=== PATIENT | male | born 1985 | race Caucasian/White ===

== ENCOUNTER 2019-03-30 07:04 | Emergency (ER) | payer SELFPAY ==
[2019-03-30 07:21] VITALS: BP 142/77; PULSE 89; RESP 16; TEMP 36.1; O2SAT 96
--- NOTE | 2019-03-30 07:36 | ED.GENADUL_ITS ---
Discharge Plan Disposition Patient Disposition: HOME Condition: Improving Discharge Details Chief Complaint: Sorethroat Clinical Impression: Exudative pharyngitis Primary Care Provider: None,None ED Provider: Fadi Borden Home Meds and New Rx's Prescriptions: New penicillin V potassium 500 mg tablet 500 mg PO TID 10 Days Qty: 30 RF: 0 No Action No Known Home Meds RF: 0 Discharge Instructions Instructions: Pharyngitis (ED) Additional Instructions: Tylenol and/or ibuprofen if needed for pain. Small, frequent sips of fluids to maintain hydration Take penicillin as prescribed. Return for any concern Medical Decision Making 34-year-old male with exudative pharyngitis. Handling secretions, no change to voice, he is afebrile and otherwise well-appearing. His rapid strep test is positive. He does have some mild swelling of the uvula, given a single dose of dexamethasone and will be started on a course of penicillin. He understands homecare as well as follow-up and return precautions. HPI General Mode of arrival: ambulatory . Date/Time Provider Initiated Documentation: 03/30/19 07:08 . Limitations to Documentation: no limitations . Information obtained by: patient . History of Present Illness 34 year old M presents to the emergency department with the chief complaint of Sore throat x2 days, described as moderate, Quality is described as dull and constant, and is localized to the face and mouth. Patient reports no radiation. Patient started experiencing this day(s) and it has been constant. No relieving factors improve symptom(s), No exacerbating factors reported . Patient notes denies fever/chills, nausea/vomiting and shortness of breath. Related Data Home Medications Medication Instructions Recorded Confirmed Unknown [No Known Home Meds] 06/14/13 03/30/19 penicillin V potassium 500 mg PO TID 10 Days #30 tab 03/30/19 Previous Rx's Medication Instructions Recorded penicillin V potassium 500 mg PO TID 10 Days #30 tab 03/30/19 Allergies Allergy/AdvReac Type Severity Reaction Status Date / Time No Known Allergies Allergy Unverified 03/30/19 07:24 General Stated Complaint: Sorethroat COLT: 4 Review of Systems Review of Systems 6 systems reviewed and otherwise negative [facility] Social History Smoking/Tobacco Use Status: Current every day Alcohol Intake: current Alcohol Intake frequency: 0-2 drinks per day Alcohol type: hard liquor Drug use: Never Do you feel safe in your relationship?: Yes Exam Narrative Exam Narrative: GEN: awake, alert, oriented 3. Pleasant, well groomed, interacti ve. HEAD: Normocephalic, atraumatic ENT: Mucous membranes moist, oropharynx with erythematous tonsillar pillars, the uvula is midline, there is overlying white exudate, External ear exam unremarkable EYES: PERRL, EOMI NECK: Full ROM, no ALVARO, no menigismus CHEST/RESP: Nontender, clear to auscultation bilateral, no wheeze/rhonchi/rales CARDIOVASCULAR: RRR, no murmur, rub paul. 2+ Rad pulse bilateral Neuro: Grossly normal neurologic exam, conversant, interactive. Psych: Speech fluent, thoughts congruent, affect normal Course Vital Signs Temperature 36.1 C L 03/30/19 07:21 Pulse 89 03/30/19 07:21 Respiratory Rate 16 03/30/19 07:21 Blood Pressure 142/77 H 03/30/19 07:21 Pulse Oximetry 96 03/30/19 07:21 Temperature 36.1 C L 03/30/19 07:21 Temperature Source Skin 03/30/19 07:21 Pulse 89 03/30/19 07:21 Respiratory Rate 16 03/30/19 07:21 Respiratory Effort Non-Labored 03/30/19 07:21 Blood Pressure 142/77 H 03/30/19 07:21 Blood Pressure Position Sitting 03/30/19 07:21 Pulse Oximetry 96 03/30/19 07:21 Oxygen Delivery Method Room Air 03/30/19 07:21 Oxygen Flow Rate 0 03/30/19 07:21 Pain Level 7 03/30/19 07:21 Lab/Test Results Lab/Test Results: POC Strep Test-HARJINDER(Rapid) Start: 03/30/19 07:27 Freq: .Rapid Strep Test Status: Active Protocol: Document 03/30/19 07:28 DARIUS (Rec: 03/30/19 07:28 DARIUS [email or web address]) Strep test-HARJINDER(Rapid)-POC POC-Strep test-HARJINDER (Rapid) Positive POC-Strep test-HARJINDER (Rapid) Positive
[2019-03-30] MEDS: Dexamethasone 4 MG TAB 8 MG PO (07:41)
== END 2019-03-30 07:43 | disposition home or self-care (01) ==
LOC: ER 07:49
PROVIDERS: Emergency Provider Emergency Medicine
DX: J02.0 Streptococcal pharyngitis (principal); F17.210 Nicotine dependence, cigarettes, uncomplicated
CPT/HCPCS: 87880; 99283; J8540

== ENCOUNTER 2021-06-24 15:54 | Emergency (ER) | payer SELFPAY ==
[2021-06-24 16:00] VITALS: BP 155/89; PULSE 107; RESP 16; TEMP 36.9; O2SAT 97
--- NOTE | 2021-06-24 16:07 | W.ED.GENAD ---
Discharge Plan Disposition Patient Disposition: HOME Condition: Improving Discharge Details Clinical Impression: Bilateral impacted cerumen Primary Care Provider: None,None ED Provider: Diandra Yeager Home Meds and New Rx's Prescriptions: No Action No Known Home Meds RF: 0 Discharge Instructions Instructions: Impactaci?n de Cerumen (ED) Additional Instructions: Follow up with primary care provider in 3-5 days. Return to ED sooner if any worsening or concerns. Increase oral fluids. Try irrigating left ear out with hydrogen peroxide and warm tap water if needed. Discharge Data Discharge Date/Time-TO BE ENTERED AT DEPARTURE: 06/24/21 17:22 Medical Decision Making Patient re-evaluated after RN irrigated ears, right ear canal completely clear, left with some remaining cerumen. Patient reports increase relief in symptoms. Instructed on follow-up with PCP, verbalized understanding. Right TM is without erythema visualized landmarks. Patient remained hemodynamically stable throughout stay. This text was generated using [employer]af[employer] dictation system, please disregard any oddities of phrase or misspellings. HPI General Mode of arrival: ambulatory. Date/Time Provider Initiated Documentation: 06/24/21 16:06. Limitations to Documentation: no limitations. Information obtained by: patient. HPI Narrative: Patient reports right ear clogged up with pain radiating into his right jaw. Reports went swimming 2 weeks ago and has always had increased wax build up. No other complaints. On initial exam he has impacted cerumen build up bilaterally. Related Data Home Medications Medication Instructions Recorded Confirmed Unknown [No Known Home Meds] 06/14/13 06/24/21 Allergies Allergy/AdvReac Type Severity Reaction Status Date / Time No Known Allergies Allergy Unverified 06/24/21 16:04 General Stated Complaint: EarProblem COLT: 4 Review of Systems All systems reviewed & are unremarkable except as noted in HPI and below ENT Ears, Nose, Mouth, and Throat: Reports otalgia (Bilaterally) [facility] Social History Smoking/Tobacco Use Status: Current every day Smoking risk assessment performed?: Yes Alcohol Intake: current Alcohol Intake frequency: 0-2 drinks per day Alcohol type: hard liquor Drug use: Never Do you feel safe in your relationship?: Yes Exam HENMT Ears: unable to visualize TM (cerumen impaction) bilaterally Course Vital Signs Vital signs: Vital Signs Temperature 36.9 C 06/24/21 16:00 Pulse 107 H 06/24/21 16:00 Respiratory Rate 16 06/24/21 16:00 Blood Pressure 155/89 H 06/24/21 16:00 Pulse Oximetry 97 06/24/21 16:00 Temperature 36.9 C 06/24/21 16:00 Temperature Source Skin 06/24/21 16:00 Pulse 107 H 06/24/21 16:00 Respiratory Rate 16 06/24/21 16:00 Respiratory Effort Non-Labored 06/24/21 16:00 Blood Pressure 155/89 H 06/24/21 16:00 Blood Pressure Position Sitting 06/24/21 16:00 Pulse Oximetry 97 06/24/21 16:00 Oxygen Delivery Method Room Air 06/24/21 16:00 Oxygen Flow Rate 0 06/24/21 16:00 Pain Level 1 06/24/21 16:05
== END 2021-06-24 17:22 | disposition home or self-care (01) ==
PROVIDERS: Emergency Provider Registered Nurse Emergency
DX: H61.23 Impacted cerumen, bilateral (principal)
CPT/HCPCS: 99281

== ENCOUNTER 2023-01-06 15:55 | Outpatient (REF) | payer BC, SELFPAY ==
[2023-01-06 15:48] LABS: Anion Gap 8.4 mmol/L (3-11); BUN 16 mg/dL (7-18); CO2 27.6 mmol/L (21.0-32.0); Calcium 9.4 mg/dL (8.5-10.1); Calculated LDL 82 mg/dL (<100); Chloride 105 mmol/L (98-107); Cholesterol 166 mg/dL (<200); Glucose 132 mg/dL (74-106); HDL Cholesterol 79 mg/dL (40-60); Sodium 141 mmol/L (136-145); TSH (W/Ref FT4) 0.96 uIU/mL (0.36-3.74); Triglyceride 25 mg/dL (<150)
== END 2023-01-06 15:56 | disposition home or self-care (01) ==
LOC: NCHCN 15:55
PROVIDERS: PCP Nurse Practitioner Family; Visit Provider Nurse Practitioner Family
DX: Z00.00 Encounter for general adult medical examination without abnormal findings (principal); F41.8 Other specified anxiety disorders; F10.10 Alcohol abuse, uncomplicated; Z13.220 Encounter for screening for lipoid disorders
CPT/HCPCS: 80048; 80061; 84443

== ENCOUNTER 2023-11-11 10:03 | Emergency (ER) | payer BC, SELFPAY ==
[2023-11-11 10:08] VITALS: BP 178/88; PULSE 80; RESP 18; TEMP 36.4; O2SAT 97
--- NOTE | 2023-11-11 10:38 | DI.RAD_ITS ---
Exam(s) XR WRIST LT COMPLETE EXAM: XR WRIST LT COMPLETE CLINICAL HISTORY: foreign body vs. fracture (nail gun). TECHNIQUE: 2D digital imaging was performed. COMPARISON: No exams were available for comparison FINDINGS: 3 views No evidence of acute fracture or dislocation nor significant ulnar variance. Bone density normal. N o osseous lesions nor erosions. There is no radiopaque foreign body. Given the history here, there is no gas in the soft tissues. No evidence of osteomyelitis. IMPRESSION: No significant radiographic findings in the bones and soft tissues of the wrist. DATA REPOSITORY: RADIATION DOSE DELIVERED:
--- NOTE | 2023-11-11 10:47 | W.ED.GENAD ---
HPI General Stated Complaint: Orthopedic COLT: 4 Date/Time Provider Initiated Documentation: 11/11/23 10:47. HPI Narrative: 38-year-old male presents with report of accidental puncture from nail gun to left forearm just prior to arrival. He removed the nail prior to arrival. He denies any additional injuries, tetanus is up-to-date. Denies strength or sensation change. Related Data Home Medications Medication Instructions Recorded Confirmed cephalexin 500 mg capsule 500 mg PO Q6H 7 days #28 caps 11/11/23 escitalopram oxalate 10 mg tablet 15 mg PO DAILY 11/11/23 11/11/23 Previous Rx's Medication Instructions Recorded cephalexin 500 mg capsule 500 mg PO Q6H 7 days #28 caps 11/11/23 Allergies Allergy/AdvReac Type Severity Reaction Status Date / Time No Known Allergies Allergy Unverified 11/11/23 10:10 PFSH All Active Problems (Updated 11/11/23 @ 10:49 by PORSHA Lopez) Puncture wound of hand (Acute) Bilateral impacted cerumen (Acute) Social History Smoking/Tobacco Use Status: Current every day Smoking risk assessment performed?: Yes Alcohol Intake: current Alcohol Intake frequency: 0-2 drinks per day Alcohol type: hard liquor Drug use: Never Do you feel safe in your relationship?: Yes Course Vital Signs Vital signs: Vital Signs Temperature 36.4 C L 11/11/23 10:08 Pulse 80 11/11/23 10:08 Respiratory Rate 18 11/11/23 10:08 Blood Pressure 178/88 H 11/11/23 10:08 Pulse Oximetry 97 11/11/23 10:08 Temperature 36.4 C L 11/11/23 10:08 Temperature Source Skin 11/11/23 10:08 Pulse 80 11/11/23 10:08 Respiratory Rate 18 11/11/23 10:08 Respiratory Effort Normal, Non-Labored 11/11/23 10:10 Blood Pressure 178/88 H 11/11/23 10:08 Blood Pressure Position Sitting 11/11/23 10:08 Pulse Oximetry 97 11/11/23 10:08 Oxygen Delivery Method Room Air 11/11/23 10:08 Oxygen Flow Rate 0 11/11/23 10:08 Pain Level 0 11/11/23 10:08 Medical Decision Making 38-year-old male presenting with puncture to the dorsal aspect of left forearm distally, does not involve the wrist joint Range of motion wrist completely intact, neurovascularly intact, some bruising and swelling noted, no evidence of obvious fracture on x-ray No foreign body visualized Cleansed copiously and dressing applied Keflex initiated Tetanus up-to-date Return precautions reviewed and patient expressed understanding, Quality:SDOH Health Related Social Needs: No Data to Display Discharge Plan Disposition Patient Disposition: Home Discharge Details Clinical Impression: Puncture wound of hand Primary Care Provider: Asiya Garcia ED Provider: Yvonne Sanchez Home Meds and New Rx's Prescriptions: New cephalexin 500 mg capsule 500 mg PO Q6H 7 Days Qty: 28 0RF Continued escitalopram oxalate 10 mg tablet 15 mg PO DAILY Patient Comments: TAKE 1 AND 1/2 TABLETS BY MOUTH EVERY DAY Discharge Instructions Instructions: Puncture Wound (ED) Additional Instructions: Take antibiotic as prescribed Yogurt daily while on antibiotic Wash with soap and water at least once a day Try to immobilize hand as much as possible, you may apply ice topically Return spreading redness, fever, worsening pain Referrals: Asiya Garcia [Primary Care Provider] -
== END 2023-11-11 10:58 | disposition home or self-care (01) ==
PROVIDERS: Emergency Provider Physician Assistant; PCP Nurse Practitioner Family
DX: S61.532A Puncture wound without foreign body of left wrist, initial encounter (principal); W29.4XXA Contact with nail gun, initial encounter
CPT/HCPCS: 99283; 73110

== ENCOUNTER 2024-06-28 13:07 | Outpatient (REF) | payer BC, SELFPAY ==
[2024-06-28 15:49] LABS: Abs Immature Grans 0.03 10^3/uL (0.0-0.06); Absolute Basophil Count 0.05 10^3/uL (0.0-0.2); Absolute Eosinophil Count 0.04 10^3/uL (0.0-0.7); Absolute Lymphocyte Count 0.82 10^3/uL (1.2-3.4); Absolute Monocyte Count 0.44 10^3/uL (0.1-0.8); Absolute Neutrophil Count 3.63 10^3/uL (1.2-6.7); Eosinophils % 0.8 %; HCT 54.3 % (40.0-50.0); HGB 17.7 g/dL (13.5-17.5); Immature Grans % 0.6 %; Lymphocytes % 16.4 %; MCH 30.6 pg (27.0-33.0); MCHC 32.6 % (32.0-36.0); MCV 94 fL (80-95); MPV 10.9 fL (8.0-11.0); Monocytes % 8.8 %; Neutrophils % 72.4 %; Platelet Count 243 10^3/uL (130-400); RBC 5.79 10^6/uL (4.36-5.78); RDW 12.5 % (11.8-14.1); RDW-SD 43.2 fL; WBC 5.01 10^3/uL (4.4-10.8)
[2024-06-28 16:22] LABS: Hemoglobin A1C 4.7 % (<5.7)
[2024-06-28 16:32] LABS: ALT 42 U/L (16-63); AST 24 U/L (15-37); Alkaline Phosphatase 73 U/L (46-116); BUN 11 mg/dL (7-18); Bilirubin, Total 0.53 mg/dL (0.2-1.0); Calcium 9.1 mg/dL (8.5-10.1); Calculated LDL 90 mg/dL (<100); Chloride 102 mmol/L (98-107); Cholesterol 148 mg/dL (<200); Estimated GFR 97.58 (mL/min/1.73m2); Glucose 102 mg/dL (74-106); HDL Cholesterol 50 mg/dL (40-60); Potassium 4.3 mmol/L (3.5-5.1); Sodium 140 mmol/L (136-145); TSH (W/Ref FT4) 1.36 uIU/mL (0.36-3.74); Total Protein 7.6 g/dL (6.4-8.2); Triglyceride 40 mg/dL (<150); Vitamin D 25 Total 29.9 ng/mL (30-100)
[2024-07-14 12:37] LABS: Testosterone, Free 69.9 ng/dL (4.46-17.1); Testosterone, Total 1560 ng/dL (240-950)
== END 2024-06-28 13:08 | disposition home or self-care (01) ==
LOC: NCHCN 13:07
PROVIDERS: PCP Nurse Practitioner Family; Visit Provider Nurse Practitioner Family
DX: Z00.00 Encounter for general adult medical examination without abnormal findings (principal); F41.9 Anxiety disorder, unspecified; F10.10 Alcohol abuse, uncomplicated
CPT/HCPCS: 80053; 80061; 82306; 84402; 84403; 83036; 84443; 85025

== ENCOUNTER 2024-07-09 12:18 | Outpatient (CLI) | payer BC, SELFPAY ==
--- NOTE | 2024-07-09 | DI.RAD_ITS ---
Exam(s) XR KNEE RT 3V AP,LAT,TAVARES EXAM: XR KNEE RT 3V AP,LAT,TAVARES CLINICAL HISTORY: RT KNEE PAIN, M25.561. TECHNIQUE: 2D digital imaging was performed of the right knee. Three views obtained. AP, lateral an d PA tunnel views were obtained. COMPARISON: CR RIGHT KNEE LIMITED 1 OR 2 VIEW from 01/23/2016 FINDINGS: BONES: No acute fracture is present. No bony destructive lesion is seen. JOINTS: In the medial femoral tibial joint, there is mild joint space narrowing and spurring present. Small osteophytes are seen at the posterior patella. There is a small joint effusion. SOFT TISSUE: Normal. IMPRESSION: Mild degenerative changes of the right knee. Small joint effusion. DATA REPOSITORY: RADIATION DOSE DELIVERED:
== END 2024-07-09 12:38 ==
LOC: DI 12:18
PROVIDERS: PCP Nurse Practitioner Family; Visit Provider Nurse Practitioner Family
DX: M25.561 Pain in right knee (principal)
CPT/HCPCS: 73562

== ENCOUNTER 2024-07-14 11:42 | Outpatient (REF) | payer BC, SELFPAY ==
[2024-07-17 16:45] LABS: Testosterone, Total 1600 ng/dL (240-950)
== END 2024-07-14 11:43 | disposition home or self-care (01) ==
LOC: NCHCN 11:42
PROVIDERS: PCP Nurse Practitioner Family; Visit Provider Nurse Practitioner Family
DX: R53.83 Other fatigue (principal)
CPT/HCPCS: 84403

== ENCOUNTER 2024-10-10 12:27 | Emergency (ER) | payer BC, SELFPAY ==
[2024-10-10 12:34] VITALS: BP 150/99; PULSE 115; RESP 16; TEMP 36.8; O2SAT 96
--- NOTE | 2024-10-10 12:54 | ED.GENADUL_ITS ---
Discharge Plan Disposition Patient Disposition: Home Condition: Stable Discharge Details Clinical Impression: Sinusitis Primary Care Provider: Larisa Culver ED Provider: Mario Guzmán Home Meds and New Rx's Prescriptions: New amoxicillin-pot clavulanate 875-125 mg tablet 1 tab PO BID Qty: 20 0RF Continued escitalopram oxalate 10 mg tablet 10 mg PO DAILY Patient Comments: TAKE 1 AND 1/2 TABLETS BY MOUTH EVERY DAY Discharge Instructions Additional Instructions: Take the antibiotic as prescribed. You can try taking a daily allergy medicine as well such as Zyrtec or Claritin. Benadryl before bed can sometimes help as well. If you are not improving this week follow-up with your primary care provider or express care If you feel more ill, have new symptoms such as difficulty breathing or severe worsening pain return to the emergency department for reevaluation HPI General Mode of arrival: ambulatory . Date/Time Provider Initiated Documentation: 10/10/24 12:38 . Limitations to Documentation: no limitations . Information obtained by: patient . History of Present Illness 39 year old M presents to the emergency department with the chief complaint of sinus infection, described as moderate, Patient started experiencing this week(s) (3) and it has been constant. No relieving factors improve symptom(s), No exacerbating factors reported . Patient notes cough; denies fever/chills, nausea/vomiting and shortness of breath. Patient did receive the following treatments prior to arrival, NSAID Related Data Home Medications ?Medication ?Instructions ?Recorded ?Confirmed escitalopram oxalate 10 mg tablet 10 mg PO DAILY 11/11/23 10/10/24 amoxicillin 875 mg-potassium 1 tab PO BID #20 tabs 10/10/24 clavulanate 125 mg tablet Previous Rx's ?Medication ?Instructions ?Recorded amoxicillin 875 mg-potassium 1 tab PO BID #20 tabs 10/10/24 clavulanate 125 mg tablet Allergies Allergy/AdvReac Type Severity Reaction Status Date / Time No Known Allergies Allergy Unverified 10/10/24 12:39 General Stated Complaint: RespSymp COLT: 3 Review of Systems All systems reviewed & are unremarkable except as noted in HPI and below Constitutional Constitutional: Denies chills, Denies fever(s) and Denies weakness ENT Ears, Nose, Mouth, and Throat: Reports sinus pain, Reports sinus pressure and Reports sore throat Cardiovascular Cardiovascular: Denies chest pain and Denies dyspnea Respiratory Respiratory: Reports cough and Denies dyspnea Gastrointestinal Gastrointestinal: Denies abdominal pain, Denies nausea and Denies vomiting Neurologic Neurologic: Denies weakness Exam Const General: no acute distress Orientation: alert [facility] Head: normal to inspection Ears: external ears normal General nose exam: external nose normal Mouth: moist mucous membranes Throat: posterior oropharynx normal and uvula midline Eyes General: appearance normal, both eyes and all related structures Neck Neck: normal visual inspection Resp Effort & Inspection: normal respiratory effort and able to speak in complete sentences Auscultation: clear to auscultation bilaterally Cardio Rate: regular rate Skin General skin exam: no rashes or lesions noted Neuro General: patient alert and patient oriented x3 Extrem General: normal to inspection Psych Mental Status: mental status grossly normal Course Vital Signs Vital signs: Vital Signs Temperature 36.8 C 10/10/24 12:34 Pulse 115 H 10/10/24 12:34 Respiratory Rate 16 10/10/24 12:34 Blood Pressure 150/99 H 10/10/24 12:34 Pulse Oximetry 96 10/10/24 12:34 Temperature 36.8 C 10/10/24 12:34 Temperature Source Oral 10/10/24 12:34 Pulse 115 H 10/10/24 12:34 Respiratory Rate 16 10/10/24 12:34 Blood Pressure 150/99 H 10/10/24 12:34 Blood Pressure Position Sitting 10/10/24 12:34 Pulse Oximetry 96 10/10/24 12:34 Oxygen Delivery Method Room Air 10/10/24 12:34 Oxygen Flow Rate 0 10/10/24 12:34 Pain Level 6 10/10/24 12:34 Medical Decision Making 3-year-old male who denies any significant past medical history comes in with 3 weeks of sinus pressure, sore throat, dry cough and ear fullness. He denies any fevers, chest pain, difficulty breathing. He is well-appearing on exam speaking in full sentences. He has tenderness over the maxillary sinuses, no facial swelling, no periorbital swelling, extraocular eye movements are normal with no eye pain. Posterior pharynx is normal, midline uvula, no submandibular swelling or pain over the hyoid, no restricted neck movements or meningismus. I suspect sinusitis given has been over 3 weeks will treat with antibiotics. Will initiate Augmentin and advised to follow-up with his PCP or express care if not improving, return precautions given Differential Diagnosis Differential Diagnosis: Sinusitis, URI Quality:SDOH Health Related Social Needs: No Data to Display PFSH All Active Problems (Updated 10/10/24 @ 12:57 by Mario Guzmán MD) Sinusitis (Acute) Chondromalacia, right knee (Acute) Tear of medial meniscus of right knee (Acute) Arthritis of right knee (Acute) Bilateral impacted cerumen (Acute) Social History Smoking/Tobacco Use Status: Current every day Smoking risk assessment performed?: Yes Alcohol Intake: current Alcohol Intake frequency: 0-2 drinks per day Alcohol type: hard liquor Drug use: Never Do you feel safe in your relationship?: Yes
[2024-10-10 13:16] VITALS: BP 150/99; PULSE 115; RESP 16; TEMP 36.8
== END 2024-10-10 13:16 | disposition home or self-care (01) ==
PROVIDERS: Emergency Provider Emergency Medicine; PCP Nurse Practitioner Family
DX: J32.9 Chronic sinusitis, unspecified (principal)
CPT/HCPCS: 99283

== ENCOUNTER 2025-05-19 15:31 | Outpatient (REF) | payer BC, SELFPAY ==
[2025-05-19 17:51] LABS: MCH 30.8 pg (27.0-33.0); MCHC 33.3 % (32.0-36.0); MCV 92 fL (80-95); MPV 10.8 fL (8.0-11.0); Platelet Count 192 10^3/uL (130-400); RBC 6.24 10^6/uL (4.36-5.78); RDW 13.0 % (11.8-14.1); RDW-SD 43.6 fL; WBC 5.73 10^3/uL (4.4-10.8)
[2025-05-19 18:34] LABS: HCT 57.6 % (40.0-50.0); HGB 19.2 g/dL (13.5-17.5)
[2025-05-19 19:18] LABS: ALT 53 U/L (16-63); AST 34 U/L (15-37); Albumin 4.4 g/dL (3.4-5.0); Alkaline Phosphatase 70 U/L (46-116); Anion Gap 12.8 mmol/L (3-11); BUN 19 mg/dL (7-18); Bilirubin, Total 1.2 mg/dL (0.2-1.0); CO2 25.2 mmol/L (21.0-32.0); Calcium 8.9 mg/dL (8.5-10.1); Chloride 99 mmol/L (98-107); Estimated GFR 110.04 (mL/min/1.73m2); Glucose 101 mg/dL (74-106); Potassium 4.6 mmol/L (3.5-5.1); Sodium 137 mmol/L (136-145); Total Protein 7.4 g/dL (6.4-8.2); Vitamin D 25 Total 34 ng/mL (30-100)
== END 2025-05-19 15:32 | disposition home or self-care (01) ==
LOC: NCHCN 15:31
PROVIDERS: PCP Nurse Practitioner Family; Visit Provider Nurse Practitioner Family
DX: R89.1 Abnormal level of hormones in specimens from other organs, systems and tissues (principal); R03.0 Elevated blood-pressure reading, without diagnosis of hypertension; R79.89 Other specified abnormal findings of blood chemistry
CPT/HCPCS: 80053; 82306; 84403; 85027

== ENCOUNTER 2025-06-23 10:50 | Outpatient (REF) | payer BC, SELFPAY ==
[2025-06-23 17:20] LABS: HCT 53.7 % (40.0-50.0); HGB 18.9 g/dL (13.5-17.5); MCH 31.9 pg (27.0-33.0); MCHC 35.2 % (32.0-36.0); MCV 91 fL (80-95); MPV 10.8 fL (8.0-11.0); Platelet Count 188 10^3/uL (130-400); RBC 5.93 10^6/uL (4.36-5.78); RDW 12.7 % (11.8-14.1); RDW-SD 42.2 fL; WBC 4.24 10^3/uL (4.4-10.8)
== END 2025-06-23 10:51 | disposition home or self-care (01) ==
LOC: NCHCN 10:50
PROVIDERS: PCP Nurse Practitioner Family; Visit Provider Nurse Practitioner Family
DX: D75.1 Secondary polycythemia (principal); R89.1 Abnormal level of hormones in specimens from other organs, systems and tissues
CPT/HCPCS: 81219; 81270; 81339; 84403; 85027

== ENCOUNTER 2025-08-19 10:37 | Outpatient (REF) | payer BC, SELFPAY ==
[2025-08-19 15:16] LABS: HCT 50.7 % (40.0-50.0); HGB 17.9 g/dL (13.5-17.5); MCH 32.1 pg (27.0-33.0); MCHC 35.3 % (32.0-36.0); MCV 91 fL (80-95); MPV 10.5 fL (8.0-11.0); Platelet Count 198 10^3/uL (130-400); RBC 5.57 10^6/uL (4.36-5.78); RDW 12.7 % (11.8-14.1); RDW-SD 42.1 fL; WBC 4.81 10^3/uL (4.4-10.8)
[2025-08-19 15:23] LABS: Anion Gap 9.8 mmol/L (3-11); BUN 20 mg/dL (7-18); CO2 28.2 mmol/L (21.0-32.0); Calcium 9.2 mg/dL (8.5-10.1); Chloride 101 mmol/L (98-107); Estimated GFR 96.97 (mL/min/1.73m2); Glucose 111 mg/dL (74-106); Potassium 4.0 mmol/L (3.5-5.1); Sodium 139 mmol/L (136-145)
[2025-08-27 03:26] LABS: Testosterone, Free 12.3 pg/mL (35.0-155.0)
== END 2025-08-19 10:38 | disposition home or self-care (01) ==
LOC: NCHCN 10:37
PROVIDERS: PCP Nurse Practitioner Family; Visit Provider Nurse Practitioner Family
DX: D75.1 Secondary polycythemia (principal); R89.1 Abnormal level of hormones in specimens from other organs, systems and tissues; I10 Essential (primary) hypertension
CPT/HCPCS: 80048; 84402; 84403; 85027